=== PATIENT | female | born 1945 | race Caucasian/White ===

== ENCOUNTER 2024-06-25 07:03 | Day surgery (SDC) | payer MEDICAID, SELFPAY ==
[2024-06-25] VITALS (22 sets, daily range): BP systolic 91–140; BP diastolic 54–62; BMI 27.1
[2024-06-25] MEDS: LOW STRENGTH ASPIRIN 81 MG PO (07:54)
[2024-06-25] MEDS: NSS 203 ML IV (07:55)
--- NOTE | 2024-06-25 10:13 | ITS.CL.CATH ---
[facility] - Catheterization
Cardiac Catheterization
Procedure Report:
CARDIAC CATHETERIZATION REPORT
Date of Procedure: 06/25/2024
Referring: Darrius Kelly MD
Indication: Exertional dyspnea with abnormal stress test
�
HEMODYNAMIC DATA
AO: 134/60
LV: 122/10
There is a mean gradient of 13 mmHg across aortic valve consistent with mild aortic stenosis
�
LEFT VENTRICULOGRAPHY: Hyperdynamic left ventricular wall motion with EF 68%
�
CORONARY ANGIOGRAPHY
Dominance: Right
Left Main: Normal
LAD: Normal
Circumflex: Normal
RCA: Normal dominant vessel
�
Closure Device: None-the procedure was performed via the right radial artery. The Juan's test was normal prior to the procedure.
�
Radiation (mGy): 210
DAP (cm2.Gy): 17.8
Fluoroscopy time: 4.0 minutes
�
CONCLUSIONS
1:�Mild aortic stenosis with mean gradient 13 mmHg
2:�Hyperdynamic left ventricular wall motion with EF 68%
3. Normal coronary arteries
�
�
Copy to: Darrius Kelly MD, Shayan Vaca MD
�
Tejinder Dias MD, [facility], [facility]
[2024-06-25] MEDS: TYLENOL 650 MG PO (13:27)
== END 2024-06-25 15:10 | disposition home or self-care (01) ==
LOC: CATH 07:03
PROVIDERS: ATTENDING PHYSICIAN Internal Medicine Cardiovascular Disease; FAMILY PHYSICIAN Internal Medicine; OTHER PHYSICIAN Internal Medicine Cardiovascular Disease
DX: R06.09 Other forms of dyspnea (principal); R94.39 Abnormal result of other cardiovascular function study; I35.0 Nonrheumatic aortic (valve) stenosis; I10 Essential (primary) hypertension; E78.5 Hyperlipidemia, unspecified; E03.9 Hypothyroidism, unspecified; Z82.49 Family history of ischemic heart disease and other diseases of the circulatory system
CPT/HCPCS: 93458; C1894; Q9967